=== PATIENT | female | born 1970 | race Caucasian/White ===

== ENCOUNTER 2016-02-22 17:33 | Emergency (ER) | payer OTHER ==
[~2016-02-22] VITALS: Ht 165.1 cm; Wt 81.2 kg
[~2016-02-22 17:33] MED LIST: BUSPAR10 MG PO; CLONAZEPAM0.5 MG PO; COGENTIN0.5 MG PO; DEPAKOTE ER250 MG PO; DIVALPROEX SOD500 M1 PO; GEODON40 MG PO; PROPRANOLOL HCL10 MG PO; QUETIAPINE FUM100 MG PO; QUETIAPINE FUM400 MG PO; TRAZODONE HCL50 MG PO
[2016-02-22 18:15] LABS: HEMATOCRIT 41.9 % (36.0-46.0); MCH 29.9 PG (29.0-34.0); MCHC 33.4 G/DL (30.0-36.0); MCV 89.3 FL (83-99); PLATELET COUNT 238 K/uL (156-360); RBC DIS.WIDTH-CV 15.1 % (11.8-14.6); RBC DIS.WIDTH-SD 48.9 % (39-53); RED BLOOD COUNT 4.69 M/uL (3.80-5.20)
[2016-02-22 18:18] LABS: WHITE BLOOD COUNT 10.2 K/uL (4.1-10.2)
[2016-02-22 18:20] LABS: CHLORIDE 107 mEq/L (99-109); POTASSIUM 3.9 mEq/L (3.7-5.4); SODIUM 141 mEq/L (136-147)
[2016-02-22 18:22] LABS: GLUCOSE 107 mg/dL (70-99)
[2016-02-22 18:23] LABS: ANION GAP 10 MEQ/L (2-14)
[2016-02-22 18:25] LABS: SERUM ETHYL ALCOHOL < 10 mg/dL
[2016-02-22 18:26] LABS: GFR ESTIMATE (CALCULATED) > 59 mL/min/; UREA NITROGEN (BUN) 23 mg/dL (9-23)
[2016-02-22 19:15] LABS: ADD MEDTOX COMMENT Y; AMPHETAMINE NEGATIVE (500 ng/mL); BARBITURATES NEGATIVE (200 ng/mL); BENZODIAZEPINES NEGATIVE (150 ng/mL); COCAINE PRESUMPTIVE POSITIVE (150 ng/mL); INTERNAL CONTROLS VALID? YES; METHADONE NEGATIVE (200 ng/mL); METHAMPHETAMINE NEGATIVE (500 ng/mL); OPIATES (MORPHINE) NEGATIVE (100 ng/mL); OXYCODONE NEGATIVE (100 ng/mL); PHENCYCLIDINE NEGATIVE (25 ng/mL); PROPOXYPHENE NEGATIVE (300 ng/mL); THC CANNABINOIDS NEGATIVE (50 ng/mL); TRICYCLIC ANTIDEPRESSANTS NEGATIVE (300 ng/mL)
[2016-02-22] MEDS ORDERED: SEROQUEL XR200 MG PO (20:40)
[2016-02-22 21:32] VITALS: BP 123/83
== END 2016-02-22 21:33 | disposition home or self-care (01) ==
LOC: EME 17:33
DX: F31.13 Bipolar disorder, current episode manic without psychotic features, severe (principal); R73.9 Hyperglycemia, unspecified; F14.10 Cocaine abuse, uncomplicated; F12.20 Cannabis dependence, uncomplicated; F17.200 Nicotine dependence, unspecified, uncomplicated; Z88.1 Allergy status to other antibiotic agents
CPT/HCPCS: 80048; 84999; 85027; 90839; 99281; 99284; G0480

== ENCOUNTER 2016-03-31 13:35 | Emergency (ER) | payer OTHER ==
[~2016-03-31] VITALS: Ht 165.1 cm; Wt 84.6 kg
[~2016-03-31 13:35] MED LIST changes: +SEROQUEL XR200 MG PO
[2016-03-31 14:11] LABS: ADD MIUA? NO; BILIRUBIN NEGATIVE; BLOOD NEGATIVE; COLOR STRAW ((YELLOW)); GLUCOSE (STRIP) NEGATIVE; KETONES NEGATIVE; LEUKOCYTES NEGATIVE; NITRITE NEGATIVE; PROTEIN (STRIP) NEGATIVE; SPECIFIC GRAVITY 1.009 (1.000-1.030); UCUL ADDED? NO; UROBILINOGEN 0.2 MG/DL (0.2-1.0)
[2016-03-31 14:13] LABS: HEMATOCRIT 41.9 % (36.0-46.0); MCH 30.8 PG (29.0-34.0); MCHC 33.9 G/DL (30.0-36.0); MCV 90.9 FL (83-99); MEAN PLAT.VOLUME 10.1 uM^3 (9.5-12.4); PLATELET COUNT 196 K/uL (156-360); RBC DIS.WIDTH-CV 15.3 % (11.8-14.6); RBC DIS.WIDTH-SD 49.7 % (39-53); RED BLOOD COUNT 4.61 M/uL (3.80-5.20)
[2016-03-31 14:23] LABS: CHLORIDE 105 mEq/L (99-109); POTASSIUM 4.2 mEq/L (3.7-5.4); SODIUM 140 mEq/L (136-147)
[2016-03-31 14:25] LABS: GLUCOSE 118 mg/dL (70-99)
[2016-03-31 14:26] LABS: ANION GAP 8 MEQ/L (2-14)
[2016-03-31 14:29] LABS: UREA NITROGEN (BUN) 19 mg/dL (9-23)
[2016-03-31 14:33] LABS: GFR ESTIMATE (CALCULATED) > 59 mL/min/
[2016-03-31] MEDS ORDERED: ZITHROMAX Z-PA250 MG PO (16:18)
[2016-03-31 16:28] VITALS: BP 110/67
== END 2016-03-31 16:30 | disposition home or self-care (01) ==
LOC: EME 13:35
DX: J18.9 Pneumonia, unspecified organism (principal); Z87.442 Personal history of urinary calculi; F17.200 Nicotine dependence, unspecified, uncomplicated
CPT/HCPCS: 74176; 80048; 81003; 85027; 99281; 99284

== ENCOUNTER 2016-11-02 11:00 | Emergency (ER) | payer OTHER ==
[~2016-11-02] VITALS: Ht 165.1 cm; Wt 96.6 kg
[~2016-11-02 11:00] MED LIST changes: +ZITHROMAX Z-PA250 MG PO
[2016-11-02 11:33] LABS: HEMATOCRIT 41.3 % (36.0-46.0); MCH 32.4 PG (29.0-34.0); MCHC 33.7 G/DL (30.0-36.0); MCV 96.3 FL (83-99); PLATELET COUNT 143 K/uL (156-360); RBC DIS.WIDTH-CV 13.5 % (11.8-14.6); RBC DIS.WIDTH-SD 48.1 % (39-53); RED BLOOD COUNT 4.29 M/uL (3.80-5.20); WHITE BLOOD COUNT 6.1 K/uL (4.1-10.2)
[2016-11-02 11:35] LABS: ADD MIUA? NO; BILIRUBIN NEGATIVE; BLOOD NEGATIVE; COLOR STRAW ((YELLOW)); GLUCOSE (STRIP) NEGATIVE; KETONES NEGATIVE; LEUKOCYTES NEGATIVE; NITRITE NEGATIVE; PROTEIN (STRIP) NEGATIVE; SPECIFIC GRAVITY 1.005 (1.000-1.030); UCUL ADDED? NO; UROBILINOGEN 0.2 MG/DL (0.2-1.0)
[2016-11-02 11:45] LABS: CHLORIDE 111 mEq/L (99-109); POTASSIUM 4.1 mEq/L (3.7-5.4); SODIUM 143 mEq/L (136-147)
[2016-11-02 11:48] LABS: GLUCOSE 102 mg/dL (70-99)
[2016-11-02 11:49] LABS: ANION GAP 10 MEQ/L (2-14); TOTAL BILIRUBIN 0.4 mg/dL (0.0-1.0)
[2016-11-02 11:51] LABS: ALKALINE PHOSPHATASE 67 IU/L (3-129); GFR ESTIMATE (CALCULATED) > 59 mL/min/
[2016-11-02 11:52] LABS: UREA NITROGEN (BUN) 18 mg/dL (9-23)
[2016-11-02 11:55] LABS: LIPASE 12 U/L (1.0-51.0)
[2016-11-02] MEDS ORDERED: MIRALAX17 GM PO (12:35)
[2016-11-02 12:54] VITALS: BP 107/65
== END 2016-11-02 12:55 | disposition home or self-care (01) ==
LOC: EME 11:00
DX: R10.11 Right upper quadrant pain (principal); Z87.442 Personal history of urinary calculi; F17.200 Nicotine dependence, unspecified, uncomplicated
CPT/HCPCS: 74176; 80053; 81003; 83690; 85027; 87086; 99281; 99283; J1885; J2270; J2405

== ENCOUNTER 2016-11-10 11:17 | Emergency (ER) | payer OTHER ==
[~2016-11-10] VITALS: Ht 165.1 cm; Wt 97.6 kg
[~2016-11-10 11:17] MED LIST changes: +MIRALAX17 GM PO
[2016-11-10 13:42] LABS: ADD MIUA? YES; BILIRUBIN NEGATIVE; BLOOD SMALL; COLOR STRAW ((YELLOW)); GLUCOSE (STRIP) NEGATIVE; KETONES NEGATIVE; LEUKOCYTES NEGATIVE; NITRITE NEGATIVE; PROTEIN (STRIP) NEGATIVE; SPECIFIC GRAVITY 1.008 (1.000-1.030); UROBILINOGEN 0.2 MG/DL (0.2-1.0)
[2016-11-10 13:50] LABS: BACTERIA RARE /HPF; EPITHELIAL CELLS RARE /HPF; MUCUS NONE SEEN /LPF; RED BLOOD CELLS 0-5 /HPF (0-5); UCUL ADDED? NO; WHITE BLOOD CELLS 0-5 /HPF (0-5)
[2016-11-10 14:07] LABS: HEMATOCRIT 43.5 % (36.0-46.0); MCH 33.6 PG (29.0-34.0); MCHC 33.8 G/DL (30.0-36.0); MCV 99.5 FL (83-99); MEAN PLAT.VOLUME 10.9 uM^3 (9.5-12.4); PLATELET COUNT 169 K/uL (156-360); RBC DIS.WIDTH-CV 13.4 % (11.8-14.6); RBC DIS.WIDTH-SD 49.6 % (39-53); RED BLOOD COUNT 4.37 M/uL (3.80-5.20); WHITE BLOOD COUNT 6.3 K/uL (4.1-10.2)
[2016-11-10 14:09] LABS: CHLORIDE 107 mEq/L (99-109); POTASSIUM 4.3 mEq/L (3.7-5.4); SODIUM 144 mEq/L (136-147)
[2016-11-10 14:11] LABS: GLUCOSE 93 mg/dL (70-99)
[2016-11-10 14:13] LABS: ANION GAP 10 MEQ/L (2-14); TOTAL BILIRUBIN 0.4 mg/dL (0.0-1.0)
[2016-11-10 14:15] LABS: ALKALINE PHOSPHATASE 73 IU/L (3-129); GFR ESTIMATE (CALCULATED) > 59 mL/min/
[2016-11-10 14:16] LABS: UREA NITROGEN (BUN) 18 mg/dL (9-23)
[2016-11-10 14:18] LABS: LIPASE 8 U/L (1.0-51.0)
[2016-11-10] MEDS ORDERED: FLEET MINERAL133 ML PR (17:25)
[2016-11-10 17:40] VITALS: BP 138/76
== END 2016-11-10 17:43 | disposition home or self-care (01) ==
LOC: EME 11:17
PROVIDERS: Physician Assistant
DX: R10.9 Unspecified abdominal pain (principal); Z87.442 Personal history of urinary calculi; F17.200 Nicotine dependence, unspecified, uncomplicated
CPT/HCPCS: 74177; 80053; 81003; 83690; 85027; 99281; 99285; J1885; J7030